=== PATIENT | male | born 1950 | race Caucasian/White ===

== ENCOUNTER → 2017-11-01 | Outpatient (CLI) | payer OTHER, MEDICARE ==
[2017-11-01 12:33] LABS: BE(vivo) -0.6 mmol/L (-2 to +3); HCO3 23.6 mmol/L (22.0-26.0); PCO2 37.3 mmHg (35.0-45.0); PO2 90.5 mmHg (80.0-100.0); pH 7.419 (7.360-7.450); sO2 97.1 % (92.0-98.0)
== END ==
LOC: RAD 11:43
PROVIDERS: Internal Medicine Pulmonary Disease
DX: G47.31 Primary central sleep apnea (principal); M06.9 Rheumatoid arthritis, unspecified; G47.19 Other hypersomnia; G89.29 Other chronic pain; R53.83 Other fatigue